=== PATIENT | female | born 1975 | race Caucasian/White ===

== ENCOUNTER 2018-02-21 09:35 | Outpatient (CLI) | payer OTHER ==
[2018-02-21] MEDS ORDERED: Gadobenate Dimeglumine 529 MG/1 ML (20ML VIAL) ONE (10:07)
== END 2018-02-21 09:36 | disposition home or self-care (01) ==
LOC: BICMRI 09:35
PROVIDERS: ATTEND Internal Medicine Infectious Disease
DX: M54.9 Dorsalgia, unspecified (principal); M51.26 Other intervertebral disc displacement, lumbar region; M51.87 Other intervertebral disc disorders, lumbosacral region; M51.84 Other intervertebral disc disorders, thoracic region; R93.422 Abnormal radiologic findings on diagnostic imaging of left kidney
CPT/HCPCS: 72157; 72158; A9579

== ENCOUNTER 2019-01-10 11:57 | Outpatient (CLI) | payer OTHER ==
--- NOTE | 2019-01-10 12:06 | RAD ---
XR Chest Pa Lat @ [facility] HISTORY: Dyspnea COMPARISON: None. FINDINGS: Heart size and mediastinum are within normal limits. The lungs are clear of infiltrates. Th ere is elevation to the right hemidiaphragm IMPRESSION: No active intrathoracic disease.
== END 2019-01-10 11:58 | disposition home or self-care (01) ==
LOC: RAD 11:57
PROVIDERS: ATTEND Internal Medicine Critical Care Medicine
DX: R06.00 Dyspnea, unspecified (principal)
CPT/HCPCS: 71046

== ENCOUNTER 2020-11-18 09:19 | Outpatient (CLI) | payer OTHER ==
[~2020-11-18 09:19] MED LIST: Magnevist 469MG/ML 20 ML VIAL ONE
== END 2020-11-18 09:20 | disposition home or self-care (01) ==
LOC: BICMRI 09:19
PROVIDERS: ATTEND Physician Assistant Medical
DX: R10.9 Unspecified abdominal pain (principal); K76.0 Fatty (change of) liver, not elsewhere classified; R74.8 Abnormal levels of other serum enzymes; R11.0 Nausea; K86.2 Cyst of pancreas
CPT/HCPCS: 74183; 82565; A9579